=== PATIENT | female | born 1990 | race Two or more races ===

== ENCOUNTER 2022-04-08 09:57 | Inpatient (IN) | payer BC, OTHER ==
[~2022-04-08] VITALS: Ht 157.5 cm; Wt 68.0 kg
[2022-04-08 11:17] LABS: Urine Bacteria NONE SEEN /hpf (None Seen); Urine Blood 1+ /uL (Negative); Urine Mucus FEW (None Seen); Urine WBC 45 /hpf (0 - 5)
[2022-04-08] MEDS ORDERED: PROMETHAZINE HCL 25 MG/ML 1ML IV PRN (11:45)
[2022-04-08] MEDS ORDERED: WITCH HAZEL-GLYCERIN PAD TOP PRN (11:45)
[2022-04-08] MEDS ORDERED: LIDOCAINE 2%HCL (LOCAL ANESTH.) INJ 10ml MDV IJ PRN (11:45)
[2022-04-08] MEDS ORDERED: PHISODERM TOP SOLN 240ML BTL TOP PRN (11:45)
[2022-04-08] MEDS ORDERED: BUTORPHANOL TARTRATE 2 MG/1 ML VIAL IV PRN (11:45)
[2022-04-08] MEDS ORDERED: DERMOPLAST 60ML BOTTLE TOP PRN (11:45)
[2022-04-08] MEDS: LACTATED RINGER'S 1,000 ML IV SCH ×2 (11:53→15:47)
[2022-04-08 12:27] LABS: Opiate Scree,Urine NEGATIVE (NEGATIVE)
[2022-04-08 12:33] LABS: Alcohol, Urine < 3.0 mg/dL (0-10); Amphetamine Screen, Urine NEGATIVE (NEGATIVE); Barbiturate Scree,Urine NEGATIVE (NEGATIVE); Benzodiazephine Screen, Urine NEGATIVE (NEGATIVE); Cannabinoid Screen, Urine NEGATIVE (NEGATIVE); Cocaine Screen, Urine NEGATIVE (NEGATIVE); Phencyclidine Screen, Urine NEGATIVE (NEGATIVE)
[2022-04-08 12:43] LABS: Basophils # (auto) 0 10 ^3/uL (0-0.2); Basophils % (auto) 0.2 % (0.0-2.0); Eosinophils # (auto) 0 10 ^3/uL (0-0.8); Eosinophils % (auto) 0.3 % (0.0-7.0); Hemoglobin 10.2 g/dL (12.2-16.2); Lymphocytes # (auto) 1.5 10 ^3/uL (0.4-5.4); Lymphocytes % (auto) 13.8 % (10.0-50.0); Mean Corpuscular Hemoglobin 28.8 pg (28.0-32.0); Mean Corpuscular Hgb Conc. 32.8 g/dL (32.0-36.0); Mean Corpuscular Volume 87.7 fL (80.0-100.0); Monocytes # (auto) 0.5 10 ^3/uL (0-1.3); Monocytes % (auto) 4.7 % (0.0-12.0); Neutrophils # (auto) 8.7 10 ^3/uL (1.6-8.6); Red Blood Cells 3.53 10^6/uL (4.0-5.20); Red Cell Distribution Width 13.9 % (11.8-14.3); White Blood Cell 10.7 10^3/uL (4.4-10.8)
[2022-04-08] MEDS ORDERED: NS/OXYTOCIN 20UNITS 500 ML IV ONE ×2 (12:45→13:15)
[2022-04-08 13:05] LABS: INR 0.86 (0.9-1.15); Partial Thromboplastin Time 28.2 sec (24.6-33.4)
[2022-04-08 13:07] LABS: Albumin 2.5 g/dL (3.4-5.0); Calcium 7.9 mg/dL (8.5-10.1); Potassium 4.1 mmol/L (3.5-5.1)
[2022-04-08 13:09] LABS: BUN/Creatinine Ratio 13.7
[2022-04-08 13:10] LABS: Bilirubin, Total 0.3 mg/dL (0.2-1.0); Total Protein 6.4 g/dL (6.4-8.2)
[2022-04-08] MEDS ORDERED: LACTATED RINGER'S 1,000 ML IV ONE ×2 (13:45→20:45)
[2022-04-08] MEDS ORDERED: NALOXONE HCL 0.4 MG/ML VIAL IV ONE (13:45)
[2022-04-08] MEDS ORDERED: ePHEDrine SULFATE 50 MG/ML AMP IV ONE (13:45)
[2022-04-08] MEDS ORDERED: ROPIVACAINE HCL 200 ML EPI SCH ×2 (13:45→14:45)
[2022-04-08] MEDS ORDERED: LIDOCAINE 1%-Mpf/Epinephrine 1:200,000 IJ ONE (13:45)
[2022-04-08] MEDS ORDERED: LIDOCAINE HCL 2 %PF INJ 10ML AMP IJ ONE (13:45)
[2022-04-08] MEDS ORDERED: fentaNYL CITRATE 100 MCG/2 ML VL IV ONE (13:45)
[2022-04-08] MEDS ORDERED: NS/OXYTOCIN 20UNITS 1,000 ML IV SCH (16:00)
[2022-04-08] MEDS ORDERED: METHYLERGONOVINE MALEATE 0.2 MG/ML AMP IM ONE (18:04)
[2022-04-08] MEDS ORDERED: METHYLERGONOVINE MALEATE 0.2 MG/ML AMP IM PRN (18:15)
[2022-04-08] MEDS ORDERED: CARBOPROST TROMETHAMINE 250 MCG/1ML VIAL IM ONE (18:19)
[2022-04-08] MEDS ORDERED: miSOPROStol 100 mcg TAB ONE (18:20)
[2022-04-08] MEDS ORDERED: miSOPROStol 100 mcg TAB PR PRN (18:30)
[2022-04-08] MEDS ORDERED: miSOPROStol 100 mcg TAB SL PRN (18:30)
[2022-04-08] MEDS ORDERED: CARBOPROST TROMETHAMINE 250 MCG/1ML VIAL IM PRN (18:30)
[2022-04-08] MEDS ORDERED: PREN27TA7 OR (18:51)
[2022-04-08] MEDS: DIPHENOXYLATE W/ATROPINE 2.5 MG TAB PO SCH ×2 (19:00→22:00)
[2022-04-08] MEDS ORDERED: IBUPROFEN 600 MG TAB PO PRN (19:00)
[2022-04-08] MEDS: ACETAMINOPHEN 325 MG TAB PO PRN (19:24)
[2022-04-08 19:26] LABS: Basophils # (auto) 0 10 ^3/uL (0-0.2); Basophils % (auto) 0.1 % (0.0-2.0); Eosinophils # (auto) 0 10 ^3/uL (0-0.8); Hemoglobin 11.9 g/dL (12.2-16.2); Lymphocytes # (auto) 1.4 10 ^3/uL (0.4-5.4)
[2022-04-08 19:28] VITALS: BP 133/60
[2022-04-08 19:28] LABS: Lymphocytes % (auto) 5.9 % (10.0-50.0); Mean Corpuscular Hemoglobin 28.3 pg (28.0-32.0); Mean Corpuscular Hgb Conc. 31.3 g/dL (32.0-36.0); Mean Corpuscular Volume 90.3 fL (80.0-100.0); Monocytes # (auto) 0.8 10 ^3/uL (0-1.3); Monocytes % (auto) 3.4 % (0.0-12.0); Neutrophils # (auto) 21.6 10 ^3/uL (1.6-8.6); Neutrophils % (auto) 90.6 % (37.0-80.0); Red Blood Cells 4.21 10^6/uL (4.0-5.20); White Blood Cell 23.8 10^3/uL (4.4-10.8)
[2022-04-08 20:33] VITALS: BP 103/58
[2022-04-08 21:12] VITALS: BP 104/51
[2022-04-08] MEDS ORDERED: IBUPROFEN 600 MG TAB PO ONE (21:24)
[2022-04-08] MEDS: IBUPROFEN 600 MG TAB PO PRN (21:56)
[2022-04-08] MEDS ORDERED: DIPHENOXYLATE W/ATROPINE 2.5 MG TAB PO SCH (22:00)
[2022-04-08 23:00] VITALS: BP 105/60
[2022-04-09] MEDS ORDERED: IBUPROFEN 800 MG TAB PO SCH
[2022-04-09] MEDS: ACETAMINOPHEN 325 MG TAB PO PRN (02:04)
[2022-04-09 03:00] VITALS: BP 94/59
[2022-04-09] MEDS: LACTATED RINGER'S 1,000 ML IV SCH (03:45)
[2022-04-09] MEDS: IBUPROFEN 600 MG TAB PO PRN ×2 (04:12→19:20)
[2022-04-09 06:15] LABS: RPR Non Reactive (Non Reactive)
[2022-04-09 07:00] VITALS: BP 84/54
[2022-04-09 07:13] LABS: Basophils # (auto) 0 10 ^3/uL (0-0.2); Basophils % (auto) 0.2 % (0.0-2.0); Eosinophils # (auto) 0 10 ^3/uL (0-0.8); Eosinophils % (auto) 0.1 % (0.0-7.0); Hematocrit 27.6 % (36.0-46.0); Lymphocytes # (auto) 1.9 10 ^3/uL (0.4-5.4); Lymphocytes % (auto) 12.7 % (10.0-50.0); Mean Corpuscular Hemoglobin 28.5 pg (28.0-32.0); Mean Corpuscular Hgb Conc. 32.5 g/dL (32.0-36.0); Mean Corpuscular Volume 87.8 fL (80.0-100.0); Monocytes % (auto) 6.8 % (0.0-12.0); Neutrophils # (auto) 12.3 10 ^3/uL (1.6-8.6); Neutrophils % (auto) 80.2 % (37.0-80.0); Red Blood Cells 3.15 10^6/uL (4.0-5.20); Red Cell Distribution Width 13.8 % (11.8-14.3); White Blood Cell 15.3 10^3/uL (4.4-10.8)
[2022-04-09] MEDS ORDERED: DOCUSATE CALCIUM 240 MG CAP PO SCH (10:00)
[2022-04-09 11:00] VITALS: BP 90/58
[2022-04-09 15:00] VITALS: BP 102/62
[2022-04-09 19:00] VITALS: BP 100/60
== END 2022-04-09 21:08 | disposition home or self-care (01) | DRG 807 ==
LOC: LDRP 09:57 → OBSVTOIN 11:25 → LDRP 11:55
PROVIDERS: ADMIT Obstetrics & Gynecology; ATTEND Obstetrics & Gynecology
PROC: 10E0XZZ Delivery of Products of Conception, External Approach (ICD-10-PCS; principal; 2022-04-08)
PROC: 0KQM0ZZ Repair Perineum Muscle, Open Approach (ICD-10-PCS; 2022-04-08)
PROC: 0W8NXZZ Division of Female Perineum, External Approach (ICD-10-PCS; 2022-04-08)
PROC: 3E0R3BZ Introduction of Anesthetic Agent into Spinal Canal, Percutaneous Approach (ICD-10-PCS; 2022-04-08)
PROC: 00HU33Z Insertion of Infusion Device into Spinal Canal, Percutaneous Approach (ICD-10-PCS; 2022-04-08)
DX: O70.1 Second degree perineal laceration during delivery (principal); Z37.0 Single live birth; Z3A.40 40 weeks gestation of pregnancy; Z20.822 Contact with and (suspected) exposure to COVID-19
CPT/HCPCS: 36415; 59025; 59409; 62282; 76805; 80053; 80307; 81001; 81002; 84112; 85025; 85610; 85730; 86592; 86850; 86900; 86901; 94760; 96360; 96361; 96365; 96366; 96372; G0378; J2001